=== PATIENT | male | born 1950 | race Caucasian/White ===

== ENCOUNTER 2016-12-16 12:31 | Emergency (ER) | payer BC ==
[2016-12-16 12:38] VITALS: BP 133/65; PULSE 66; TEMP 97.9; BMI 28.0
[2016-12-16 15:51] LABS: URINE APPEARANCE CLEAR; URINE BILIRUBIN NEGATIVE (NEGATIVE); URINE BLOOD NEGATIVE (NEGATIVE); URINE COLOR LTYELLOW; URINE GLUCOSE (UA) NEGATIVE (NEGATIVE); URINE KETONE NEGATIVE (NEGATIVE); URINE NITRITE NEGATIVE (NEGATIVE); URINE PROTEIN NEGATIVE (NEGATIVE); URINE UROBILINOGEN NEGATIVE mg/dL (0.2-1.0)
--- NOTE | 2016-12-16 15:53 | PDOC ---
History of Present Illness - General Chief Complaint: Urinary Problem Stated Complaint: URINARY RETENTION Time Seen by Provider: 12/16/16 15:41 Past History - Past Medical History Allergies/Adverse Reactions: Allergies Allergy/AdvReac Type Severity Reaction Status Date / Time No Known Allergies Allergy Verified 12/16/16 12:35 Home Medications: Ambulatory Orders Aspirin [ASA -] 81 mg PO DAILY 09/08/15 Atenolol [Tenormin -] 25 mg PO DAILY 09/08/15 Cephalexin Monohydrate [Keflex -] 500 mg PO Q8H #30 capsule 09/08/15 Valsartan [Diovan] 160 mg PO DAILY 09/08/15 Phenazopyridine HCl [Pyridium -] 100 mg PO TID #15 tablet 12/16/16 HTN: Yes Hypercholesterolemia: Yes Kidney Stones: Yes - Immunization History Immunization Up to Date: No - Suicide/Smoking/Psychosocial Hx Smoking History: Never smoked Hx Alcohol Use: No Drug/Substance Use Hx: No *Physical Exam - Vital Signs Last Vital Signs Temp Pulse Resp BP Pulse Ox 97.9 F 66 20 133/65 99 12/16/16 12:35 12/16/16 12:35 12/16/16 12:35 12/16/16 12:35 12/16/16 12:35 ED Treatment Course - ADDITIONAL ORDERS Additional order review: Laboratory Results 12/16/16 15:14 Urine Color Ltyellow Urine Appearance Clear Urine pH 6.0 Urine Protein Negative Urine Glucose (UA) Negative Urine Ketones Negative Urine Blood Negative Urine Nitrite Negative Urine Bilirubin Negative Urine Urobilinogen Negative *DC/Admit/Observation/Transfer Diagnosis at time of Disposition: UTI (urinary tract infection) Qualifiers: Urinary tract infection type: acute cystitis Hematuria presence: without hematuria Qualified Code(s): N30.00 - Acute cystitis without hematuria - Discharge Dispostion Disposition: HOME Condition at time of disposition: Good Admit: No - Prescriptions Prescriptions: Phenazopyridine HCl [Pyridium -] 100 mg PO TID #15 tablet - Referrals Referrals: Jennyfer Uriarte MD [Primary Care Provider] - Call tomorrow - Patient Instructions Printed Discharge Instructions: DI for Urinary Tract Infection (UTI) Additional Instructions: You do have a urinary tract infection. Continue taking the keflex you have. Take 3 tabs for the next 5 days. You were also prescribed pyridium. This is to help with the burning sensation. Take this medication three times a day with food. Drink plenty of fluids and follow up with your primary care doctor in the next 24 hours. Return to the ED if you have back pain, fevers, or if your symptoms are not getting better - Post Discharge Activity Forms/Work/School Notes: Back to Work
[2016-12-16 18:08] LABS: URINE LEUK ESTERASE Negative (NEGATIVE)
== END 2016-12-16 16:44 | disposition home or self-care (01) ==
LOC: JER 12:31
PROC: 0T9B70Z Drainage of Bladder with Drainage Device, Via Natural or Artificial Opening (ICD-10-PCS; principal; 2016-12-16)
DX: N30.00 Acute cystitis without hematuria (principal); N40.1 Benign prostatic hyperplasia with lower urinary tract symptoms; R33.8 Other retention of urine; I10 Essential (primary) hypertension; E78.00 Pure hypercholesterolemia, unspecified; Z87.442 Personal history of urinary calculi
CPT/HCPCS: 81003; 87086; 99281-25

== ENCOUNTER 2016-12-17 06:37 | Emergency (ER) | payer BC ==
[2016-12-17 07:21] VITALS: BP 175/98; PULSE 93; TEMP 97.7; BMI 25.1
--- NOTE | 2016-12-17 08:10 | PDOC ---
History of Present Illness - General Chief Complaint: Urinary Problem Stated Complaint: URINARY PROBLEM Time Seen by Provider: 12/17/16 07:33 - History of Present Illness Travel History: Yes Initial Comments: 12/17/16 09:38 66y M hx of htn, hl, presents with complaint of urinary retention. pt was seen i [facility] for the same complaint, but was able to urinate, so had a UA and was d/c with posible uti as pt had complaints of dysuria (was already on abx). no fever/ chills, back pain. pt states he has been unable to uriante since last night, has a hx of bph in the past, last sprague was 1 year ago, pt has prior hx of greenlight surgery many years ago. current urologist in [place] but hasnt seen them in [address] barksdale Past History - Past Medical History Allergies/Adverse Reactions: Allergies Allergy/AdvReac Type Severity Reaction Status Date / Time No Known Allergies Allergy Verified 12/17/16 07:21 Home Medications: Ambulatory Orders Aspirin [ASA -] 81 mg PO DAILY 09/08/15 Atenolol [Tenormin -] 25 mg PO DAILY 09/08/15 Cephalexin Monohydrate [Keflex -] 500 mg PO Q8H #30 capsule 09/08/15 Valsartan [Diovan] 160 mg PO DAILY 09/08/15 Phenazopyridine HCl [Pyridium -] 100 mg PO TID #15 tablet 12/16/16 HTN: Yes Hypercholesterolemia: Yes Kidney Stones: Yes - Immunization History Immunization Up to Date: No - Suicide/Smoking/Psychosocial Hx Smoking History: Never smoked Information on smoking cessation initiated: No Hx Alcohol Use: No Drug/Substance Use Hx: No Substance Use Type: None Review of Systems - Review of Systems Able to Perform ROS?: Yes Comments:: 12/17/16 09:41 Constitutional - no reported Fever, Chills, HEENT: no reported vision changes, sore throat Respiratory: no reported cough, sob, hemoptysis Cardiac: no reported chest pain, palpitations, light headedness, leg swelling Abd/GI: no reported abd pain, nausea, vomiting, blood per rectum, melena, diarrhea : +urinary retention no reported dysuria, frequency, discharge Musculskelatal - no reported back pain, joint swelling skin - no reported bruising, erythema, rash neurological: no reported headache, numbness, focal weakness, tingling, ataxia, hematologic: no reported anemia, easy bruising, easy bleeding Is the patient limited Peruvian proficient: Yes *Physical Exam - Vital Signs Last Vital Signs Temp Pulse Resp BP Pulse Ox 97.7 F 93 H 20 175/98 100 12/17/16 07:17 12/17/16 07:17 12/17/16 07:17 12/17/16 07:17 12/17/16 07:17 - Physical Exam Comments: 12/17/16 09:46 GENERAL: The patient is awake, alert, and fully oriented,apperas to be uncomfortable HEAD: Normocephalic, atraumatic. EYES: extraocular movements intact, sclera anicteric, conjunctiva clear. ENT: Normal voice, Moist mucous membranes. NECK: Normal range of motion, supple LUNGS: Breath sounds equal, clear to auscultation bilaterally. No wheezes, no rhonchi, no rales. HEART: Regular rate and rhythm, normal S1 and S2 without murmur, rub or gallop. ABDOMEN: mild suprapubic tenderness, normoactive bowel sounds. No guarding, no rebound. . No CVA tenderness EXTREMITIES: Normal range of motion, no edema. No clubbing or cyanosis. No cords, erythema, or tenderness. NEUROLOGICAL: No facial assymetry, Normal speech, PSYCH: Normal mood, normal affect. SKIN: Warm, Dry, normal turgor, Medical Decision Making - Medical Decision Making 12/17/16 09:56 66y M hx of htn, bph presents with urinary retuention unable to pass sprague cath or coudet catheter. pt was able pass alittle bit o furine durinthe cathter procedure. dw dr. vega, requested that we send him to his office for evaluation. pt states he is comfortable with the plan return precautions were disucssed I discussed the physical exam findings, ancillary test results and final diagnoses with the patient. I answered all of the patient's questions. The patient was satisfied with the care received and felt comfortable with the discharge plan and treatment plan. The patient will call their primary care physician within 24 hours to arrange follow-up and will return to the Emergency Department with any new, persistent or worsening symptoms. 12/17/16 11:23 received follow up from Dr. Vega The pt had bulbar stricture that was dilated successfully and is dioing well *DC/Admit/Observation/Transfer Diagnosis at time of Disposition: Urinary retention - Discharge Dispostion Disposition: HOME Condition at time of disposition: Stable Admit: No - Referrals Referrals: Maurizio Marin MD [Staff Physician] - - Patient Instructions Printed Discharge Instructions: DI for Urinary Retention in Men Additional Instructions: Dr. Vega will see you in the office right now to evaluate your retention. Please go to his office at [address], [address] immediately. Print Language: AUSTRALIAN
== END 2016-12-17 10:02 | disposition home or self-care (01) ==
LOC: JER 06:37
PROC: 0T9B70Z Drainage of Bladder with Drainage Device, Via Natural or Artificial Opening (ICD-10-PCS; principal; 2016-12-17)
DX: N40.1 Benign prostatic hyperplasia with lower urinary tract symptoms (principal); R33.8 Other retention of urine; I10 Essential (primary) hypertension; Z87.442 Personal history of urinary calculi
CPT/HCPCS: 99281-25